=== PATIENT | male | born 1995 | race Caucasian/White ===

== ENCOUNTER 2024-02-26 14:33 | Emergency (ER) | payer OTHER ==
[~2024-02-26] VITALS: Ht 185.4 cm; Wt 74.8 kg
[2024-02-26] MEDS ORDERED: ACETAMINOPHEN ES 500 MG TABLET ONE (15:05)
[2024-02-26] MEDS: ACETAMINOPHEN ES 500 MG TABLET PO ONE (15:08)
[2024-02-26 16:42] VITALS: BP 117/70; TEMP 98; O2SAT 96; O2SAT 99
== END 2024-02-26 16:42 | disposition home or self-care (01) ==
LOC: ER 14:47
DX: M25.522 Pain in left elbow (principal)
CPT/HCPCS: 73080-TC